=== PATIENT | female | born 1995 | race Caucasian/White ===

== ENCOUNTER 2021-07-27 19:06 | Emergency (ER) | payer OTHER ==
[2021-07-27 20:01] LABS: RED BLOOD COUNT 4.72 M/UL (4.00-5.10); WHITE BLOOD COUNT 11.1 K/UL (4.5-11.0)
[2021-07-27 20:24] LABS: BUN/CREATININE RATIO 8 (0-10)
== END 2021-07-27 22:25 | disposition home or self-care (01) ==
LOC: ER1 19:06
PROVIDERS: Nurse Practitioner
DX: R10.9 Unspecified abdominal pain (principal); R10.817 Generalized abdominal tenderness; Z88.0 Allergy status to penicillin; F17.290 Nicotine dependence, other tobacco product, uncomplicated
CPT/HCPCS: 80053; 81001; 82150; 83690; 84703; 85025; 99284; Q9967

== ENCOUNTER 2021-08-13 14:45 | Emergency (ER) | payer OTHER ==
[2021-08-13] MEDS ORDERED: CYCLOBENZAPRINE10 MG PO (15:29)
== END 2021-08-13 15:35 | disposition home or self-care (01) ==
LOC: ER1 14:45
DX: M62.830 Muscle spasm of back (principal); F17.200 Nicotine dependence, unspecified, uncomplicated; Z88.0 Allergy status to penicillin; Z88.1 Allergy status to other antibiotic agents
CPT/HCPCS: 96372; 99283; J1885